=== PATIENT | female | born 1965 | race Caucasian/White ===

== ENCOUNTER 2017-04-20 12:20 | Emergency (ER) | payer MEDICAID, SELFPAY ==
[2017-04-20 12:20] VITALS: BMI 27.2
[2017-04-20 12:41] VITALS: RESP 18; TEMP 98
[2017-04-20] MEDS ORDERED: HYDROmorphone 1 mg/ml ISec IVP STA (12:45)
--- NOTE | 2017-04-20 12:56 | ED PDOC ---
Arrival/HPI - General Chief Complaint: Back Pain Time Seen by Provider: 04/20/17 12:28 Historian: Patient, Family (niece) EM Caveat: Language Barrier (thai speaker) - History of Present Illness Narrative History of Present Illness (Text): 04/20/17 12:59 pt p/w ~ 1 week onset of left lower neck region pain/upper shoulder pain, worse with movement; pt states pain now is severe at 9/10; pt states the pain started as 2-3/10 ~ 1 week ago; pt states no fall/trauma/heavy lifting/prolonged lifting ; pt states she also noted that the pain and some heaviness/tingling is radiating down to her left hand/left 2-3rd fingers; pt also noted b/l lower leg/ thigh tightness/cramps, with pain radiating to lower back as well; pt states this pain has occurred ~ last 4 days; pt states no fever/chills/sweats, no sob, intermittent left upper chest tightness, no palpitations; pt states no abd pain , + b/l lower abd/groin pain; pt states, no n/v, + tingling noted to b/l lower ext; pt states no numbness, no urinary/bowel changes, no incontinence noted, no other complaints; pt is here for further eval. pt is right hand dominate pt just moved to [email or web address] from [facility] ~ 1 month ago pt does not take any medications Time/Duration: 1 week Symptom Onset: Gradual Symptom Course: Worsening Quality: Stabbing Severity Level: 9, Severe Activities at Onset: Rest Context: Exertion Past Medical History - Provider Review Nursing Documentation Reviewed: Yes - Travel History Have you recently traveled outside [place] w/in the past 3 mons?: No - Past History Past History: No Previous (hx of migraine headache) - Reproductive Currently : No - Cardiac Hx Cardiac Disorders: No - Pulmonary Hx Respiratory Disorders: No - Neurological Hx Neurological Disorder: No Hx Migraine: Yes - HEENT Hx HEENT Disorder: No - Hematological/Oncological Hx Blood Transfusions: No Hx Blood Transfusion Reaction: No - Integumentary Hx Dermatological Disorder: No - Musculoskeletal/Rheumatological Hx Falls: No - Gastrointestinal Hx Gastrointestinal Disorders: No - Psychiatric Hx Depression: No Hx Emotional Abuse: No Hx Physical Abuse: No Hx Substance Use: No - Surgical History Hx Cholecystectomy: Yes - Anesthesia Hx Anesthesia Reactions: No Hx Malignant Hyperthermia: No - Suicidal Assessment Feels Threatened In Home Enviroment: No Family/Social History - Physician Review Nursing Documentation Reviewed: Yes Family/Social History: No Known Family HX Smoking Status: Never Smoked Hx Alcohol Use: No Hx Substance Use: No Allergies/Home Meds Allergies/Adverse Reactions: Allergies No Known Allergies Allergy (Verified 04/20/17 12:29) Review of Systems - Review of Systems Constitutional: Normal Eyes: Normal ENT: Normal Respiratory: Normal Cardiovascular: Chest Pain Gastrointestinal: Normal Genitourinary Female: Normal Musculoskeletal: Back Pain, Neck Pain, Other (left neck/shoulder pain) Skin: Normal Neurological: Normal Endocrine: Normal Hemo/Lymphatic: Normal Psychiatric: Normal Physical Exam Vital Signs Reviewed: Yes Vital Signs Temp Pulse Resp BP Pulse Ox 04/20/17 12:36 98.0 F 94 H 18 141/76 100 Temperature: Afebrile Blood Pressure: Other (mildly elevated BP) Pulse: Regular Respiratory Rate: Normal Appearance: Positive for: Well-Appearing, Non-Toxic, Other (uncomfortable patient, alert/awake, GCS = 15, oriented x 3, moderate distress due to pain during exam; cooperative; resting in bed) Pain Distress: None Mental Status: Positive for: Alert and Oriented X 3 - Systems Exam Head: Present: Atraumatic, Normocephalic Pupils: Present: PERRL, Other (no nystagmus, no photophobia, sclera anicteric) Extroacular Muscles: Present: EOMI Conjunctiva: Present: Normal Mouth: Present: Moist Mucous Membranes, Normal Teeth, Other (no dysphonia/ drooling) Pharnyx: Present: Normal, Other (uvula/tongue are midline, no exudate/lesions) Nose (External): Present: Atraumatic Neck: Present: Other (decr ROM to left otherwise WNL ROM; + left lower para- cervical tenderness, no midline tenderness, strength 5/5 grossly intact in all limbs, no gross deformities) Respiratory/Chest: Present: Clear to Auscultation, Good Air Exchange. No: Respiratory Distress, Accessory Muscle Use Cardiovascular: Present: Regular Rate and Rhythm, Normal S1, S2. No: Murmurs Abdomen: Present: Normal Bowel Sounds, Other (well nourished female; no morgan' s sign, no mcburney's point tenderness, no masses/rebound/guarding/rigidity; noted b/l lower groin tenderness). No: Tenderness, Distention, Peritoneal Signs Back: Present: Normal Inspection, Other (+ lower lumbar midline tenderness, no gross deformities noted, no crepitus) Upper Extremity: Present: Normal Inspection, NORMAL PULSES, Neurovascularly Intact, Capillary Refill < 2s, Other (decr ROM to left shoulder, + strength 5/5 grossly intact in all limbs, neurovasc intact b/l; no gross deformities). No: Cyanosis, Edema Lower Extremity: Present: Normal Inspection, NORMAL PULSES, Neurovascularly Intact, Capillary Refill < 2 s, Other (decr ROM to b/l hips with left >> right due to back pain; + SLR ~ 20 degress b/l lower ext; strength 5/5 grossly intact in all limbs, neurovasc intact b/l, +2/2 reflex b/l). No: Edema, Gayle's Sign, Tenderness Neurological: Present: GCS=15, CN II-XII Intact, Speech Normal, Other (no facial asymmetries, no slurr speech; oriented x 3) Skin: Present: Warm, Dry, Normal Color. No: Rashes Psychiatric: Present: Alert, Oriented x 3, Normal Insight, Normal Concentration Medical Decision Making ED Course and Treatment: 04/20/17 12:53 Impression: atrumatic left shoulder/neck pain, lower back pain x 1 week i have consider all the differential diagnosis regarding pt's chief medical complaints/clinical findings, including but are not limited to: cervical strain/ lumbar strain, musculoskeletal strain/pain, unlikely CVA/TIA, unlikely ACS/ cardiac pathology; clinically no evidence of spinal injury; r/o infection A/P: neck/back pain - labs - iv - xray - ct - ua - observe - supportive care 04/20/17 13:12 04/20/17 14:13 pt is feeling improved, states pain is now 4-5/10 pt is resting/sleeping prior to my ED re-eval pt is awaiting xrays 04/20/17 15:39 pt remained comfortable pt is now able to move around easier, less pain pt/family are made aware of pt's medical results pt is encouraged avoidance of prolonged standing/lifting, avoid heavy lifting pt will f/u as directed pt will be discharged home Re-evaluation Time: 14:13 Reassessment Condition: Improving,but remains with symptoms - Lab Interpretations Lab Results: 04/20/17 13:00 04/20/17 13:00 Lab Results 04/20/17 13:00: Urine Color Yellow, Urine Appearance Clear, Urine pH 7.5, Ur Specific Holman 1.015, Urine Protein Negative, Urine Glucose (UA) Negative, Urine Ketones Negative, Urine Blood Negative, Urine Nitrate Negative, Urine Bilirubin Negative, Urine Urobilinogen 0.2, Ur Leukocyte Esterase Negative 04/20/17 13:00: Sodium 140, Potassium 4.1, Chloride 105, Carbon Dioxide 23, Anion Gap 16, BUN 13, Creatinine 0.5 L, Est GFR ( Amer) > 60, Est GFR ( Non-Af Amer) > 60, Random Glucose 108, Calcium 9.8, Total Bilirubin 0.8, AST 30 , ALT 48, Alkaline Phosphatase 65, Troponin I < 0.01, Total Protein 7.0, Albumin 4.1, Globulin 2.9, Albumin/Globulin Ratio 1.4, Lipase 56 04/20/17 13:00: WBC 6.6, RBC 4.45, Hgb 13.5, Hct 39.7, MCV 89.2, MCH 30.3, MCHC 34.0, RDW 13.3, Plt Count 277, MPV 10.9, Gran % 59.7, Lymph % (Auto) 30.8, [place] % (Auto) 6.4 H, Eos % (Auto) 2.6, Baso % (Auto) 0.5, Gran # 3.92, Lymph # 2.0, [place] # 0.4, Eos # 0.2, Baso # 0.03, ESR 8 I have reviewed the lab results: Yes (WNL) Interpretation: All labs normal - RAD Interpretation Radiology Orders: 04/20/17 12:46 HEAD W/O CONTRAST [CT] Stat 04/20/17 12:47 CHEST TWO VIEWS (PA/LAT) [RAD] Stat 04/20/17 12:48 SHOULDER LEFT [RAD] Stat 04/20/17 12:50 LS SPINE WITH OBL > 18 YRS OLD [RAD] Stat CXR - poor insp effort; mild cardiomeagly, otherwise NAD, as read by me shoulder - no fx/dislocation, as read by me L/S - straightening, no acute fx noted, no subluxation loss of intervertebral space T12/L1 PROCEDURE: CT HEAD WITHOUT CONTRAST. HISTORY: left arm weakness, x 1 week COMPARISON: None available. TECHNIQUE: Axial computed tomography images were obtained through the head/brain without intravenous contrast. Radiation dose: Total exam DLP = 954.76 mGy-cm. This CT exam was performed using one or more of the following dose reduction techniques: Automated exposure control, adjustment of the mA and/or kV according to patient size, and/or use of iterative reconstruction technique. FINDINGS: HEMORRHAGE: No intracranial hemorrhage. BRAIN: No mass effect or edema. No atrophy or chronic microvascular ischemic changes. VENTRICLES: Unremarkable. No hydrocephalus. CALVARIUM: Unremarkable. PARANASAL SINUSES: Unremarkable as visualized. No significant inflammatory changes. MASTOID AIR CELLS: Unremarkable as visualized. No inflammatory changes. OTHER FINDINGS: None. IMPRESSION: No acute intracranial abnormalities. No significant findings to account for the clinical presentation. Leather Skinner: ED Physician, Radiologist - EKG Interpretation EKG Interpretation (Text): 04/20/17 13:43 NSR at 80 bpm, normal axis, no ectopy, qs in leads III, no st-t changes, NORMAL EKG OTHERWISE; no old ekg to compare with Interpreted by ED Physician: Yes Type: 12 lead EKG Comparison: No previous EKG avail. - Medication Orders Current Medication Orders: Discontinued Medications Diazepam (Valium) 2 mg PO ONCE ONE PRN Reason: Protocol Stop: 04/20/17 12:49 Last Admin: 04/20/17 13:14 Dose: 2 mg Hydromorphone HCl (Dilaudid) 1 mg IVP STAT STA Stop: 04/20/17 12:46 Last Admin: 04/20/17 13:14 Dose: 1 mg MAR Pain Assessment Document 04/20/17 13:14 EWO (Rec: 04/20/17 13:[address] [id number][facility] Pain Reassessment Is this a pain reassessment? No Sleep Is patient sleeping during reassessment? No Presence of Pain Presence of Pain Yes Pain Scale Used Pain Scale Used Numeric IVP Administration Document 04/20/17 13:14 EWO (Rec: 04/20/17 13:14 [id number]) Charges for Administration # of IVP Administrations 1 Ketorolac Tromethamine (Toradol) 15 mg IVP STAT STA Stop: 04/20/17 12:50 Last Admin: 04/20/17 13:14 Dose: 15 mg MAR Pain Assessment Document 04/20/17 13:14 [facility] (Rec: 04/20/17 13:14 [facility] [id number]) Pain Reassessment Is this a pain reassessment? No Sleep Is patient sleeping during reassessment? No Presence of Pain Presence of Pain Yes Pain Scale Used Pain Scale Used Numeric IVP Administration Document 04/20/17 13:14 [facility] (Rec: 04/20/17 13:14 [facility] [id number]) Charges for Administration # of IVP Administrations 1 Disposition/Present on Arrival - Present on Arrival Any Indicators Present on Arrival: No History of DVT/PE: No History of Uncontrolled Diabetes: No Urinary Catheter: No History of Decub. Ulcer: No History Surgical Site Infection Following: None - Disposition Have Diagnosis and Disposition been Completed?: Yes Diagnosis: Cervical muscle strain, Low back pain Disposition: HOME/ ROUTINE Disposition Time: 15:32 Patient Plan: Discharge Patient Problems: Current Active Problems Problem Status Onset Cervical muscle strain Acute Low back pain Acute Condition: STABLE Discharge Instructions (ExitCare): Cervical Strain (DC), Lumbar Radiculopathy ( ED) Print Language: CITIZEN OF [place] Additional Instructions: Make sure to see your doctor in 1-2 days DRINK PLENTY OF FLUIDS take your medications as prescribed AVOID heavy lifting, avoid prolonged standing RETURN TO ED IF worse pain, cant breath, persistent vomiting, high fever >101- 102 for hours, altered behavior, unable to urinate, heavy/persistent bleeding, passing out, chest pain, or other medical emergencies Prescriptions: Diazepam [Valium] 2 mg PO TID #15 tablet Ibuprofen [Motrin] 400 mg PO QID #30 tab oxyCODONE/Acetaminophen [Percocet 5/325 mg Tab] 1 tab PO TID #12 tab Referrals: Janett Florentino, [Primary Care Provider] - Follow up with primary Wendy Franco MD [Staff Provider] - Follow up with primary Forms: [employer] (Indian)
[2017-04-20 13:24] LABS: BASO # 0.03 K/mm3 (0.0-2.0); BASO % 0.5 % (0.0-3.0); EOS # 0.2 (0.0-0.7); EOS % 2.6 % (1.5-5.0); GRAN # 3.92 (1.4-6.5); GRAN % 59.7 % (50.0-68.0); HEMATOCRIT 39.7 % (36.0-48.0); LYMPH % 30.8 % (22.0-35.0); MEAN CELL VOLUME 89.2 fl (80.0-105.0); MEAN CORPUSCULAR HEMOGLOBIN 30.3 pg (25.0-35.0); MEAN PLATELET VOLUME 10.9 fl (7.0-11.0); MONO # 0.4 (0.1-0.6); MONO % 6.4 % (1.0-6.0); PH,URINE 7.5 (4.7-8.0); RED CELL DISTRIBUTION WIDTH 13.3 % (11.5-14.5); URINE BILIRUBIN NEGATIVE (NEGATIVE); URINE BLOOD NEGATIVE (NEGATIVE); URINE GLUCOSE (UA) NEGATIVE (NEGATIVE); URINE KETONE NEGATIVE (NEGATIVE); URINE LEUKOCYTE ESTERASE NEGATIVE Leu/uL (NEGATIVE); URINE PROTEIN NEGATIVE mg/dL (<30 mg/dL); URINE UROBILINOGEN 0.2 E.U./dL (<1 E.U./dL); WHITE BLOOD COUNT 6.6 10^3/ul (4.5-11.0)
[2017-04-20 13:26] LABS: URINE APPEARANCE CLEAR (CLEAR); URINE COLOR YELLOW (YELLOW)
[2017-04-20 13:35] LABS: ALB/GLOB RATIO 1.4 (1.1-1.8); BILIRUBIN,TOTAL 0.8 mg/dL (0.2-1.3); CALCIUM 9.8 mg/dL (8.4-10.5); GFR AFRICAN-AMERICAN > 60; GLUCOSE,RANDOM 108 mg/dL (70-110); LIPASE 56 U/L (23-300)
[2017-04-20 13:46] LABS: TROPONIN I < 0.01 ng/mL
[2017-04-20 13:49] LABS: ALKALINE PHOSPHATASE 65 U/L (38-126); ALT/SGPT 48 U/L (7-56); AST/SGOT 30 U/L (14-36); BLOOD UREA NITROGEN 13 mg/dL (7-21); CARBON DIOXIDE 23 mmol/L (21-33); CHLORIDE 105 mmol/L (98-107); POTASSIUM 4.1 mmol/L (3.6-5.0); SODIUM 140 mmol/L (132-148)
--- NOTE | 2017-04-20 14:51 | CT ---
PROCEDURE: CT HEAD WITHOUT CONTRAST. HISTORY: left arm weakness, x 1 week COMPARISON: None available. TECHNIQUE: Axial computed tomography images were obtained through the head/brain without intravenous contrast. Radiation dose: Total exam DLP = 954.76 mGy-cm. This CT exam was performed using one or more of the following dose reduction techniques: Automated exposure control, adjustment of the mA and/or kV according to patient size, and/or use of iterative reconstruction technique. FINDINGS: HEMORRHAGE: No intracranial hemorrhage. BRAIN: No mass effect or edema. No atrophy or chronic microvascular ischemic changes. VENTRICLES: Unremarkable. No hydrocephalus. CALVARIUM: Unremarkable. PARANASAL SINUSES: Unremarkable as visualized. No significant inflammatory changes. MASTOID AIR CELLS: Unremarkable as visualized. No inflammatory changes. OTHER FINDINGS: None. IMPRESSION: No acute intracranial abnormalities. No significant findings to account for the clinical presentation.
--- NOTE | 2017-04-20 15:47 | RAD ---
PROCEDURE: Radiographs of the Lumbar Spine. HISTORY: back pain, COMPARISON: No prior. FINDINGS: BONES: Normal alignment. No listhesis. No fracture. DISC SPACES: Unremarkable. OTHER FINDINGS: None. IMPRESSION: Unremarkable radiographs of the lumbar spine. Concordant results with the preliminary interpretation rendered by the emergency department physician procedure.
--- NOTE | 2017-04-20 15:48 | RAD ---
HISTORY: left arm pain, chest pain? COMPARISON: No prior. TECHNIQUE: Chest PA and lateral FINDINGS: LUNGS: No active pulmonary disease. PLEURA: No significant pleural effusion identified. No pneumothorax apparent. CARDIOVASCULAR: Normal. OSSEOUS STRUCTURES: No significant abnormalities. VISUALIZED UPPER ABDOMEN: Normal. OTHER FINDINGS: None. IMPRESSION: No active disease.
--- NOTE | 2017-04-20 15:48 | RAD ---
PROCEDURE: Radiographs of the Left Shoulder HISTORY: fall, left shoulder pain COMPARISON: No prior. FINDINGS: BONES: Normal. No fracture. JOINTS: Normal. Glenohumeral and acromioclavicular joints preserved. No osteoarthritis. SOFT TISSUES: Normal. OTHER FINDINGS: None. IMPRESSION: Normal radiographs of the left shoulder. Concordant results with the preliminary interpretation rendered by the emergency department physician procedure.
[2017-04-20 15:52] VITALS: BP 143/88; PULSE 78; O2SAT 99
--- NOTE | 2017-04-21 08:38 | CARD ---
APPROVED REPORT EKG Measurement Heart [id number] <Conclusion> Normal sinus rhythm Normal ECG
== END 2017-04-20 15:52 | disposition home or self-care (01) ==
LOC: ED 12:20
DX: S16.1XXA Strain of muscle, fascia and tendon at neck level, initial encounter (principal); X58.XXXA Exposure to other specified factors, initial encounter; M54.5 Low back pain
CPT/HCPCS: 70450; 71020; 72110; 73030; 80053; 81003; 83690; 84484; 85025; 85651; 93005; 96374; 96375; 99283; J1170; J1885